=== PATIENT | female | born 1980 | race Caucasian/White ===

== ENCOUNTER 2019-01-03 11:08 | Inpatient (IN) | payer OTHER ==
[~2019-01-03] VITALS: Ht 154.9 cm; Wt 95.0 kg
--- NOTE | 2019-01-03 12:20 | NUR ---
A 38, admitted to , under the services of MIKI Gonzalez DO with a diagnosis of ALCOHOL DEPENDENCY AND WITHDRAWAL. Chief complaint is WANTS TO QUIT . Patient arrived via from [place]. [facility] Monitor applied. Initial assessment completed. Vital signs taken and recorded. MIKI GONZALEZ DO notified of admission to the unit. Orders received. See assessment for past medical history, medications and allergies. Patient and/or family oriented to unit. [address] visitation policy reviewed. Clothing/patient valuable form completed. LEROY ARTEAGA
--- NOTE | 2019-01-03 12:37 | NUR ---
PATIENT MEETS [facility]. CIWA=25. PATIENT IS WANTING TO GO TO [facility] FOR RESIDENTIAL TREATMENT. ME STAFF WILL FOLLOW UP WITH PATIENT CONCERNING HER AFTERCARE PLAN. CICI TOPETE B.A. UTILITY PIPE LAYER
[2019-01-03 12:38] VITALS: BP 128/92
--- NOTE | 2019-01-03 12:43 | NUR ---
Dr Soto notified that pt is on the floor.
--- NOTE | 2019-01-03 13:06 | NUR ---
[place] STAFF SPOKE WITH [facility]. THEY HAVE A POSSIBLE OPENING FOR January. PATIENT AGREES AND UNDERSTANDS HER AFTERCARE PLAN. CICI TOPETE B.A. STEAM BONE PRESS TENDER
[2019-01-03] MEDS ORDERED: ACAMPROSATE CA333 M1 PO (13:09)
[2019-01-03] MEDS ORDERED: DULOXETINE HCL20 MG PO (13:09)
[2019-01-03] MEDS ORDERED: OXCARBAZEPINE300 M1 PO (13:10)
[2019-01-03] MEDS ORDERED: QUETIAPINE FUM100 M3 PO (13:11)
[2019-01-03] MEDS ORDERED: VITAMIN B122500 MC1 PO (13:12)
[2019-01-03] MEDS ORDERED: VITAMIN D31000 UNI1 PO (13:12)
[2019-01-03] MEDS ORDERED: MELATONIN5 M1 SL (13:13)
[2019-01-03 13:41] LABS: BILIRUBIN NEGATIVE (NEGATIVE); BLOOD TRACE-LYSED (NEGATIVE); CLARITY CLOUDY (CLEAR); COLOR YELLOW (YELLOW); GLUCOSE NEGATIVE (NEGATIVE); KETONE TRACE (NEGATIVE); LEUKO ESTERASE NEGATIVE (NEGATIVE); NITRITE NEGATIVE (NEGATIVE); SPECIFIC GRAVITY >= 1.030 (1.005-1.030); UROBILINOGEN 0.2 E.U./dl (0.2-1.0)
[2019-01-03 13:45] LABS: BASO # 0.1 10*3/uL (0.0-0.1); BASO % 0.4 % (0.0-1.0); EOS # 0.1 10*3/uL (0.0-0.4); EOS % 0.5 % (1.0-4.0); HEMATOCRIT 44.1 % (37.0-47.0); HEMOGLOBIN 14.8 g/dl (12.0-16.0); LYMPH % 23.6 % (27.0-41.0); MEAN CELL VOLUME 89.3 fl (81.0-99.0); MEAN CORPUSCULAR HGB CONC 33.6 g/dl (33.0-37.0); MEAN PLATELET VOLUME 9.8 fl (9.6-12.3); MONO # 0.6 10*3/uL (0.1-1.0); MONO % 4.5 % (3.0-9.0); NEUT # 9.1 10*3/uL (2.3-7.9); NEUT % 70.8 % (47.0-73.0); PLATELET COUNT AUTOMATED 292 10*3/uL (130-400); RED BLOOD COUNT 4.94 10*6/uL (4.10-5.10); RED CELL DISTRI WIDTH 12.3 % (0-14.5); WHITE BLOOD COUNT 12.9 10*3/uL (4.8-10.8)
[2019-01-03 13:50] LABS: URINE AMPHETAMINES < 1000 (1000ng/ml); URINE BARBITURATES < 200 (200ng/ml); URINE BENZODIAZEPINES < 200 (200ng/ml); URINE CANNABINOIDS (THC) < 50 (50ng/ml); URINE COCAINE < 300 (300ng/ml); URINE METHADONE < 300 (300ng/ml); URINE OPIATES < 300 (300ng/ml)
[2019-01-03 13:57] LABS: URINE PHENCYCLIDINE < 25 (25ng/ml)
[2019-01-03 14:00] LABS: BACTERIA TRACE; MUCOUS 1+; WBC 0-2 wbc/hpf (0-5)
[2019-01-03 14:02] LABS: ALKALINE PHOSPHATASE 90 U/L (45-117); BUN 13 mg/dl (7-24); CHLORIDE 105 mmol/L (98-107); CREATININE 0.95 mg/dL (0.55-1.02); POTASSIUM 3.5 mmol/L (3.5-5.1); SGOT/AST 31 IU/L (3-35); SGPT/ALT 55 U/L (12-78); SODIUM 137 mmol/L (136-145); TOTAL PROTEIN 7.4 gm/dL (6.4-8.2)
[2019-01-03 14:12] LABS: BETA-HCG, QUANT < 1.0 mIU/mL (1-3); ETHYL ALCOHOL < 3.0 mg/dl (<3)
--- NOTE | 2019-01-03 15:15 | NUR ---
TRANSFERRED TO ICU, QUESTIONS ANSWERED. RAN IV STARTED FOR INCREASING SYMPTOMS OF WITHDRAWL. PO ATIVAN GIVEN ORDERED.
[2019-01-03 15:20] VITALS: BP 125/74
--- NOTE | 2019-01-03 15:29 | NUR ---
RECEIVED PT FROM [facility] [place]. PT IS AAOX3. VITAL SIGNS STABLE. LUNG WOLFE CLEAR. PT DOES C/O NAUSEA,DIARRHEA,ANXIETY AND TREMORS. PO ATIVAN GIVEN PER ORDER.
--- NOTE | 2019-01-03 15:31 | NUR ---
SPOKE TO TEMO RODRÍGUEZ
[2019-01-03 15:33] VITALS: BP 124/74
--- NOTE | 2019-01-03 17:03 | NUR ---
MEDICATED PT PER PRN ORDER WITH MOTRIN FOR C/O MUSCLE ACHES,ZOFRAN FOR NAUSEA, AND NICODERM PATCH FOR C/O NICOTINE WITHDRAWL.
--- NOTE | 2019-01-03 17:26 | NUR ---
MEDICATED PT PER PRN ORDER WITH ROBAXIN FOR C/O MUSCLE ACHES NOT RELIEVED WITH EARLIER MOTRIN.
--- NOTE | 2019-01-03 18:16 | NUR ---
PT RESTING. EARLIER PRN MEDS EFFECTIVE.
[2019-01-03 20:00] VITALS: BP 124/73
--- NOTE | 2019-01-03 20:20 | NUR ---
CHART CHECK COMPLETE.
[2019-01-04] VITALS: BP 106/59
[2019-01-04 04:00] VITALS: BP 110/63
--- NOTE | 2019-01-04 04:10 | NUR ---
ROBAXIN 0000 AND TYLENOL 2330 FOR LEG CRAMPS AND GENERALIZED ACHES IN BACK EFFECTIVE PER PT.
--- NOTE | 2019-01-04 06:34 | NUR ---
ROBAXIN GIVEN AT 0615 PER PT REQUEST FOR LEG CRAMPING EFFECTIVE PER PT.
[2019-01-04 08:00] VITALS: BP 114/67
--- NOTE | 2019-01-04 10:27 | NUR ---
DR MOREIRA IN TO SEE PT. ORDERED [place] [facility] [place]IC[place] PT SHANNAN PER HER REQUEST WITH NICODERM PATCH FOR C/O NICOTINE WITHDRAWL.
--- NOTE | 2019-01-04 10:51 | NUR ---
psychiatric assessment: met with client to assess for present suicide risk, client is here for [facility] and alcohol detox. client has a hx of mental health and a suicide attempt. client denies that she is having any suicidal thoughts presently, she reports that she is not depressed, that dealing with the alcohol is uncomfortable but she is doing it. she feels safe and we discussed that she may move to a regular room and her thoughts, she reports that she would be ok with this and does not want to harm herself. she is not a present risk for suicide, and she does not require a one to one status. discusssed with her nurse.
--- NOTE | 2019-01-04 10:56 | NUR ---
TEMO BRO IN TO SEE PT. UPDATED HER ON PT'S CONDITION AND PLAN OF CARE. TEMO DEEMED PT IS NOT A SUICIDE RISK AT THIS TIME.
--- NOTE | 2019-01-04 11:56 | NUR ---
DR DUFFY UPDATED ON NEW SUICIDE RISK EVAL. HE INFORMED DR MOREIRA. DR DUFFY CALLED AND SAID THAT DR MOREIRA STATED TEMO BRO'S ASSESMNT THAT PT IS NOT A SUICIDE RISK OVERRIDES THE ASSESMENT. PT TRANSFERED TO 410. PT REPORT GIVEN TO RECEIVING NURSE.
[2019-01-04 12:00] VITALS: BP 122/75
--- NOTE | 2019-01-04 13:40 | NUR ---
Robaxin given for patient c/o muscle spasms and Motrin given for c/o acheyness.
--- NOTE | 2019-01-04 14:15 | NUR ---
Robaxin and Motrin effective. Patient satisfied.
--- NOTE | 2019-01-04 15:30 | NUR ---
Called Dr. Ramirez for permission to remove excelsior machine operator so patient can shower.
[2019-01-04 16:00] VITALS: BP 128/83
--- NOTE | 2019-01-04 18:20 | NUR ---
Vistaril given for patient c/o anxiety. Will monitor.
--- NOTE | 2019-01-04 19:42 | NUR ---
SPOKE WITH DR DUFFY REGARDING PRN ATIVAN ORDER. STATED TO REDATE IT FOR TODAY. ALSO STATED TO REMOVE HEART MONITOR
[2019-01-04 20:00] VITALS: BP 136/85
--- NOTE | 2019-01-04 20:00 | NUR ---
PT COMPLAINING OF ANXIETY AND SLIGHT TREMOR. MMEDICATED PER ORDER. WILL MONITOR FOR RELIEF. VOICES NO OTHER CONCERNS AT THIS TIME. RESTING IN BED. CALL LIGHT WITHIN REACH.
--- NOTE | 2019-01-04 20:48 | NUR ---
1MG PO ATIVAN EFFECTIVE. PT IS CURRENTLY SLEEPING. RESPS EASY NON LABORED. CALL LIGHT WITHIN REACH.
--- NOTE | 2019-01-04 23:55 | NUR ---
24 HR chart check completed.
[2019-01-05] VITALS: BP 118/88
--- NOTE | 2019-01-05 01:08 | NUR ---
PT COMPLAINING OF INSOMNIA. WENT TO MEDICATE WITH TRAZADONE AND HER EGG ALLERGY FLAGGED. WHEN PATIENT WAS ASKED TO DESCRIBE WHAT KIND OF ALLERGIC REACTION HAPPENS WHEN SHE CONSUMES EGGS OR EGG PRODUCTS SHE STATED SHE GETS AN UPSET STOMACH AND HAS SOME ABDOMINAL CRAMPS. PT ALSO STATED THAT SHE HAS TAKEN TRAZADONE IN THE PAST WITHOUT ANY ISSUES. MEDICATED PER ORDER. WILL MONITOR PATIENT. VOICES NO OTHER CONCERNS AT THIS TIME. RESTING IN BED. CALL LIGHT WITHIN REACH. ALLERGY LIST UPDATED.
--- NOTE | 2019-01-05 02:29 | NUR ---
Patient resting quietly with no c/o discomfort. Respirations easy and regular. Vital signs stable. No overt distress. CALL LIGHT WITHIN REACH. HISSOM,TRAMAINE
--- NOTE | 2019-01-05 04:21 | NUR ---
Patient sleeping. Respirations relaxed and easy. S[place]ails up . [place] on. CALL LIGHT WITHIN REACH. NO S/S OF DISTRESS NOTED HISSOM,TRAMAINE
[2019-01-05 06:47] LABS: BASO % 0.5 % (0.0-1.0); EOS # 0.4 10*3/uL (0.0-0.4); EOS % 6.5 % (1.0-4.0); HEMOGLOBIN 13.3 g/dl (12.0-16.0); LYMPH # 2.3 10*3/uL (1.3-4.4); LYMPH % 41.9 % (27.0-41.0); MEAN CELL VOLUME 90.1 fl (81.0-99.0); MEAN CORPUSCULAR HGB 29.2 pg (27.0-31.0); MEAN CORPUSCULAR HGB CONC 32.4 g/dl (33.0-37.0); MEAN PLATELET VOLUME 10.6 fl (9.6-12.3); MONO # 0.5 10*3/uL (0.1-1.0); MONO % 8.4 % (3.0-9.0); NEUT # 2.4 10*3/uL (2.3-7.9); NEUT % 42.5 % (47.0-73.0); PLATELET COUNT AUTOMATED 215 10*3/uL (130-400); RED BLOOD COUNT 4.55 10*6/uL (4.10-5.10); RED CELL DISTRI WIDTH 11.7 % (0-14.5); WHITE BLOOD COUNT 5.6 10*3/uL (4.8-10.8)
[2019-01-05 08:00] VITALS: BP 133/91
[2019-01-05 12:00] VITALS: BP 131/84
--- NOTE | 2019-01-05 12:59 | NUR ---
Patient accidentally pulled IV out. Per Dr. Soto patient does not need a new IV.
--- NOTE | 2019-01-05 15:50 | NUR ---
PATIENT MEDICATED WITH IBUPROFEN AND ROBAXIN FOR HEADACHE AND MUSCLE CRAMPS IN HER LEGS RATED 4/10. WILL MONITOR FOR EFFECTIVENESS. CALL LIGHT WITHIN REACH.
[2019-01-05 16:00] VITALS: BP 117/87
--- NOTE | 2019-01-05 19:00 | NUR ---
ASSUMED CARE FOR THIS PT AT THIS TIME. PT RESTING QUEITLY IN BED. NO C/O VOICED. CALL LIGHT IN REACH.
[2019-01-05 20:00] VITALS: BP 133/56
--- NOTE | 2019-01-05 22:45 | NUR ---
PT MEDICATED W/ROBAXIN FOR C/O LEG CRAMPS AND TRAZADONE TO HELP PROMOTE SLEEP.
[2019-01-06] VITALS: BP 119/71
--- NOTE | 2019-01-06 05:10 | NUR ---
24 HR chart check completed.
[2019-01-06 08:00] VITALS: BP 121/81
[2019-01-06 11:59] VITALS: BP 112/86
[2019-01-06 16:00] VITALS: BP 121/80
--- NOTE | 2019-01-06 16:14 | NUR ---
MOTRIN GIVEN FOR C/O GENERALIZED DISCOMFORT. WILL MONITOR.
--- NOTE | 2019-01-06 19:30 | NUR ---
TOOK OVER CARE OF PT AT THIS TIME. PT IS SLEEPING BED, RESPIRATIONS EASY AND UNLABORED. NO S/S OF DISTRESS NOTED. WHITE BOARD UPDATED. WILL MONITOR. CALL LIGHT IN REACH.
[2019-01-06 20:00] VITALS: BP 126/81
--- NOTE | 2019-01-06 21:12 | NUR ---
PT GIVEN TRAZODONE FOR RESTLESSNESS AND INSOMNIA;PT ALSO GIVEN SENEKOT AT THIS TIME FOR C/O CONSTIPATION. WILL MONITOR FOR EFFECTIVENESS. ALL OTHER HS MEDS GIVEN. ASSESSMENT COMPLETE WITH NO OTHER COMPLAINTS VOICED. CALL LIGHT IN REACH.
--- NOTE | 2019-01-06 22:12 | NUR ---
TRAZODONE EFFECTIVE. PT RESTING IN BED AT THIS TIME. WILL MONITOR FOR EFFECTIVENESS OF S[place]KOT.
[2019-01-07] VITALS: BP 101/72
--- NOTE | 2019-01-07 06:00 | NUR ---
PT GIVEN MORNING MEDICAITONS. TAKEN WITH EASE. PT HAS NO COMPLAINTS AT THIS TIME AND STATES THAT SHE SLEPT WELL THROUGHOUT THE NIGHT. CALL LIGHT IN REACH.
[2019-01-07 06:47] LABS: CREATININE 0.96 mg/dL (0.55-1.02)
[2019-01-07 08:43] VITALS: BP 120/76
--- NOTE | 2019-01-07 09:00 | NUR ---
Patient resting quietly with no c/o discomfort. Respirations easy and regular. Vital signs stable. No overt distress. Continue to monitor the pt. SHARAD GUZMAN
--- NOTE | 2019-01-07 10:27 | NUR ---
PRN ROBAXIN GIVEN FOR COMPLAINTS OF LEG PAIN. WILL MONITOR FOR EFFECTIVENESS.
--- NOTE | 2019-01-07 10:30 | NUR ---
SPOKE WITH DR YUAN ABOUT PTS MED REC FOR [facility]. ORDERS RECEIVED. CONTINUE TO MONITOR THE PT.
--- NOTE | 2019-01-07 11:25 | NUR ---
RE-EVALUATED AT THIS TIME. ROBAXIN EFFECTIVE PER PT. LEG PAIN IS IMPROVING. CONTINUE TO MONITOR THE PT.
[2019-01-07 12:23] VITALS: BP 123/83
[2019-01-07 16:00] VITALS: BP 115/75
--- NOTE | 2019-01-07 16:26 | NUR ---
MEDICATED WITH VISTARIL ORDERED FOR COMPLAINTS OF ANXIETY
--- NOTE | 2019-01-07 17:34 | NUR ---
VOICES THAT VISTARIL WAS EFFECTIVE FOR ANXIETY
--- NOTE | 2019-01-07 19:30 | NUR ---
PATIENT SEEMED TEARFUL WHEN ENTERING THE ROOM. PATIENT ARGUING WITH SOMEONE ON THE PHONE. PATIENT STATED SHE WAS FINE. LUNG SOUNDS CLEAR. NORMOACTIVE BS X4. CALL LIGHT WITHIN REACH.
[2019-01-07 20:00] VITALS: BP 111/81
--- NOTE | 2019-01-07 21:26 | NUR ---
PRN TRAZADONE GIVEN FOR SLEEP PER REQUEST. WILL MONITOR FOR EFFECTIVENESS.
--- NOTE | 2019-01-07 22:20 | NUR ---
PATIENT ASLEEP AT THIS TIME. RESPIRATIONS EVEN AND UNLABORED. PRN TRAZADONE EFFECTIVE.
--- NOTE | 2019-01-07 22:21 | NUR ---
24 HR chart check completed.
[2019-01-08] VITALS: BP 129/76
[2019-01-08 06:25] LABS: BASO % 0.6 % (0.0-1.0); EOS # 0.3 10*3/uL (0.0-0.4); EOS % 5.1 % (1.0-4.0); HEMATOCRIT 44.4 % (37.0-47.0); HEMOGLOBIN 14.4 g/dl (12.0-16.0); LYMPH # 2.1 10*3/uL (1.3-4.4); LYMPH % 30.9 % (27.0-41.0); MEAN CELL VOLUME 89.7 fl (81.0-99.0); MEAN CORPUSCULAR HGB 29.1 pg (27.0-31.0); MEAN CORPUSCULAR HGB CONC 32.4 g/dl (33.0-37.0); MEAN PLATELET VOLUME 10.7 fl (9.6-12.3); MONO # 0.5 10*3/uL (0.1-1.0); MONO % 6.9 % (3.0-9.0); NEUT # 3.8 10*3/uL (2.3-7.9); NEUT % 56.1 % (47.0-73.0); PLATELET COUNT AUTOMATED 207 10*3/uL (130-400); RED BLOOD COUNT 4.95 10*6/uL (4.10-5.10); RED CELL DISTRI WIDTH 11.9 % (0-14.5); WHITE BLOOD COUNT 6.7 10*3/uL (4.8-10.8)
[2019-01-08 08:00] VITALS: BP 126/70
--- NOTE | 2019-01-08 09:52 | NUR ---
PT DISCHARGED AT THIS TIME. PER NEW DIONNE BOLANOS PT IS ACCEPTED AT [facility] AND HER RIDE WILL BE HERE TO PICK HER UP AT 1220. PT STATES THAT SHE WANTS TO WAIT FOR THEM IN THE LOBBY BECAUSE SHE WANTS TO TAKE A WALK AND HAVE A SMOKE FIRST.
--- NOTE | 2019-01-08 09:52 | NUR ---
Discharge instructions reviewed with patient/family. Patient receptive and verbalizes understanding. Follow-up care arranged. Written instructions given to patient/family. YANE BUTTERFIELD
== END 2019-01-08 09:52 | disposition home or self-care (01) | DRG 775 ==
LOC: 4E 11:08 → ICCU 15:10 → 4E 01-04 12:36
PROVIDERS: Internal Medicine; ADMIT Internal Medicine
DX: F10.239 Alcohol dependence with withdrawal, unspecified (principal); F41.9 Anxiety disorder, unspecified; R25.1 Tremor, unspecified; R26.2 Difficulty in walking, not elsewhere classified; F33.9 Major depressive disorder, recurrent, unspecified; F17.210 Nicotine dependence, cigarettes, uncomplicated; R45.851 Suicidal ideations; R10.84 Generalized abdominal pain; R19.7 Diarrhea, unspecified; Z90.711 Acquired absence of uterus with remaining cervical stump; Z71.6 Tobacco abuse counseling; Z81.4 Family history of other substance abuse and dependence; Z88.0 Allergy status to penicillin; Z88.5 Allergy status to narcotic agent; Z91.012 Allergy to eggs; Z79.899 Other long term (current) drug therapy; R65.10 Systemic inflammatory response syndrome (SIRS) of non-infectious origin without acute organ dysfunction